=== PATIENT | female | born 1960 | race Caucasian/White ===

== ENCOUNTER → 2017-03-04 | Emergency (ER) | payer OTHER ==
[~2017-03-04] VITALS: Ht 160 cm; Wt 48.1 kg
[~2017-03-04] MED LIST: KETO10TA2 PO; ORPH100T PO; TUSSI PRES-B L120 M1 PO; ZITHROMAX TRI-500 MG PO
== END | disposition home or self-care (01) ==
LOC: ER 08:09
DX: B34.9 Viral infection, unspecified (principal)

== ENCOUNTER → 2017-03-25 | Outpatient (CLI) | payer OTHER | END | disposition home or self-care (01) | LOC: PPHC 13:19 | DX: J02.9 Acute pharyngitis, unspecified (principal); H92.03 Otalgia, bilateral ==

== ENCOUNTER → 2018-05-09 | Outpatient (CLI) | payer OTHER | END | disposition home or self-care (01) | LOC: RAD 501 09:51 | DX: N20.0 Calculus of kidney (principal); R31.29 Other microscopic hematuria ==

== ENCOUNTER 2018-10-30 14:11 | Emergency (ER) | payer OTHER ==
[~2018-10-30] VITALS: Ht 157.5 cm; Wt 47.6 kg
[2018-10-30] MEDS ORDERED: ORPHENADRI30 MG/1 M1 IJ (16:43)
[2018-10-30] MEDS ORDERED: TORADOL60 MG IM (16:43)
== END 2018-10-30 16:48 | disposition home or self-care (01) ==
LOC: ER 14:11
DX: M62.838 Other muscle spasm (principal); G44.209 Tension-type headache, unspecified, not intractable

== ENCOUNTER 2019-09-07 17:20 | Emergency (ER) | payer OTHER ==
[~2019-09-07] VITALS: Ht 160 cm; Wt 45.8 kg
[~2019-09-07 17:20] MED LIST changes: +ORPHENADRI30 MG/1 M1 IJ; +TORADOL60 MG IM
[2019-09-07] MEDS ORDERED: LEVSIN/SL0.125 MG SL (22:51)
[2019-09-07] MEDS ORDERED: PEPCID AC20 MG PO (22:51)
== END 2019-09-07 23:25 | disposition home or self-care (01) ==
LOC: ER 17:20
DX: R10.11 Right upper quadrant pain (principal); Z20.828 Contact with and (suspected) exposure to other viral communicable diseases

== ENCOUNTER 2020-04-03 07:54 | Outpatient (CLI) | payer OTHER ==
[~2020-04-03 07:54] MED LIST changes: +LEVSIN/SL0.125 MG SL; +PEPCID AC20 MG PO
== END 2020-04-03 08:13 | disposition home or self-care (01) ==
LOC: MRI 07:54
PROVIDERS: ATTEND Internal Medicine Gastroenterology
DX: K86.2 Cyst of pancreas (principal); R93.5 Abnormal findings on diagnostic imaging of other abdominal regions, including retroperitoneum
CPT/HCPCS: 74181

== ENCOUNTER → 2022-01-05 10:46 | Outpatient (CLI) | payer OTHER | END | disposition home or self-care (01) | LOC: LAB 10:46 | PROVIDERS: ATTEND Radiology Diagnostic Radiology | DX: R41.3 Other amnesia (principal) ==

== ENCOUNTER 2022-01-07 07:43 | Outpatient (CLI) | payer OTHER | END 2022-01-07 08:00 | disposition home or self-care (01) | LOC: MRI 07:43 | PROVIDERS: ATTEND Neuromusculoskeletal Medicine & OMM | DX: R41.3 Other amnesia (principal); I67.9 Cerebrovascular disease, unspecified | CPT/HCPCS: 70553 ==

== ENCOUNTER 2022-07-07 15:16 | Outpatient (CLI) | payer OTHER | END 2022-07-07 15:25 | disposition home or self-care (01) | LOC: LAB 15:16 | PROVIDERS: ATTEND Radiology Diagnostic Radiology | DX: R10.9 Unspecified abdominal pain (principal) ==

== ENCOUNTER 2022-07-08 06:57 | Outpatient (CLI) | payer OTHER | END 2022-07-08 07:20 | disposition home or self-care (01) | LOC: TOM 06:57 | PROVIDERS: ATTEND Internal Medicine Gastroenterology | DX: R10.31 Right lower quadrant pain (principal); R10.9 Unspecified abdominal pain; R14.0 Abdominal distension (gaseous) ==

== ENCOUNTER 2022-07-21 07:19 | Outpatient (CLI) | payer OTHER | END 2022-07-21 07:30 | disposition home or self-care (01) | LOC: SONOGRAMA 07:19 | PROVIDERS: ATTEND Internal Medicine Gastroenterology | DX: R10.9 Unspecified abdominal pain (principal); N39.0 Urinary tract infection, site not specified; E78.5 Hyperlipidemia, unspecified ==

== ENCOUNTER 2022-08-08 14:21 | Emergency (ER) | payer OTHER ==
[~2022-08-08] VITALS: Ht 160 cm; Wt 53.1 kg
[2022-08-08] MEDS ORDERED: ZESTRIL2.5 MG (15:25)
== END 2022-08-08 17:43 | disposition home or self-care (01) ==
LOC: ER 14:21
DX: R07.0 Pain in throat (principal)

== ENCOUNTER 2022-08-12 07:19 | Outpatient (CLI) | payer OTHER ==
[~2022-08-12 07:19] MED LIST changes: +ZESTRIL2.5 MG
== END 2022-08-12 07:40 | disposition home or self-care (01) ==
LOC: TOM 07:19
PROVIDERS: ATTEND Specialist
DX: K11.20 Sialoadenitis, unspecified (principal); Q21.3 Tetralogy of Fallot

== ENCOUNTER 2022-08-30 15:27 | Outpatient (CLI) | payer OTHER | END 2022-08-30 15:40 | disposition home or self-care (01) | LOC: RAD 15:27 | DX: M79.671 Pain in right foot (principal) ==

== ENCOUNTER 2023-02-24 13:21 | Outpatient (CLI) | payer OTHER | END 2023-02-24 14:32 | disposition home or self-care (01) | LOC: TOM 13:21 | PROVIDERS: ATTEND Specialist | DX: M54.16 Radiculopathy, lumbar region (principal); M48.061 Spinal stenosis, lumbar region without neurogenic claudication ==

== ENCOUNTER → 2023-03-11 | Outpatient (CLI) | payer OTHER | END | disposition home or self-care (01) | LOC: RAD 11:45 | PROVIDERS: ATTEND Internal Medicine Rheumatology | DX: M45.9 Ankylosing spondylitis of unspecified sites in spine (principal); M45.8 Ankylosing spondylitis sacral and sacrococcygeal region ==

== ENCOUNTER 2023-09-22 05:36 | Emergency (ER) | payer OTHER ==
[~2023-09-22] VITALS: Ht 160 cm; Wt 61.2 kg
[2023-09-22] MEDS ORDERED: ACETAMINOPHEN 500 MG GEL..CAP PO STA (06:54)
[2023-09-22] MEDS ORDERED: ONDANSETRON 4 MG TAB.RAPDIS PO STA (06:54)
[2023-09-22] MEDS ORDERED: ONDANSETRON 4 MG TAB.RAPDIS PO ONE (07:01)
[2023-09-22] MEDS ORDERED: ACETAMINOPHEN 500 MG GEL..CAP PO ONE (07:01)
[2023-09-22 07:54] LABS: HEMATOCRIT 38.2 % (36.0-45.00); HEMOGLOBIN 12.9 g/dL (12.0-15.00); MEAN CELL VOLUME 86.8 fL (80.00-100.00); MEAN CORPUSCULAR HEMOGLOBIN 29.2 pg (27.00-32.0); MEAN CORPUSCULAR HGB CONC 33.6 g/dl (32.0-36.0); PLATELET COUNT 292 K/uL (150-450); RED BLOOD COUNT 4.41 M/uL (4.00-6.00); RED CELL DISTRIBUTION WIDTH 13.6 % (11.5-14.5)
[2023-09-22] MEDS ORDERED: MUCINEX DM ER1 EAC1 PO (08:32)
[2023-09-22] MEDS ORDERED: ACETAMINOPHEN500 M2 PO (08:32)
[2023-09-22] MEDS ORDERED: AZITHROMYCIN500 MG PO (08:32)
[2023-09-22] MEDS ORDERED: ONDANSETRON HCL4 MG PO (08:40)
[2023-09-22] MEDS ORDERED: PEPCID AC20 MG PO (08:40)
== END 2023-09-22 08:54 | disposition home or self-care (01) ==
LOC: ER 05:37 → EDBD 05:37 → ER 05:37
PROVIDERS: General Practice
DX: J06.9 Acute upper respiratory infection, unspecified (principal); R50.9 Fever, unspecified

== ENCOUNTER 2023-09-30 08:58 | Outpatient (CLI) | payer OTHER ==
[~2023-09-30 08:58] MED LIST changes: +ACETAMINOPHEN500 M2 PO; +AZITHROMYCIN500 MG PO; +MUCINEX DM ER1 EAC1 PO; +ONDANSETRON HCL4 MG PO
== END 2023-09-30 09:25 | disposition home or self-care (01) ==
LOC: SONOGRAMA 08:58
PROVIDERS: ATTEND Internal Medicine Gastroenterology
DX: R10.9 Unspecified abdominal pain (principal)

== ENCOUNTER 2024-03-09 08:50 | Outpatient (CLI) | payer OTHER | END 2024-03-09 09:10 | disposition home or self-care (01) | LOC: TOM 08:50 | PROVIDERS: ATTEND Internal Medicine Gastroenterology | DX: R10.9 Unspecified abdominal pain (principal); R14.0 Abdominal distension (gaseous); R10.31 Right lower quadrant pain; N39.0 Urinary tract infection, site not specified; K86.2 Cyst of pancreas; E78.5 Hyperlipidemia, unspecified; K52.9 Noninfective gastroenteritis and colitis, unspecified ==

== ENCOUNTER 2024-04-09 21:55 | Emergency (ER) | payer OTHER ==
[~2024-04-09] VITALS: Ht 160 cm; Wt 52.2 kg
[2024-04-09] MEDS ORDERED: FENOFIBRATE145 MG PO (22:08)
[2024-04-09] MEDS ORDERED: FAMOTIDINE/PF 20 MG in 0.9 % SODIUM CHLORIDE 8 ML IV PUSH STA (22:34)
[2024-04-09] MEDS ORDERED: METOCLOPRAMIDE HCL 10 MG in DEXTROSE 5 % IN WATER 50 ML IV ONE (22:45)
[2024-04-09] MEDS ORDERED: 0.9 % SODIUM CHLORIDE 1,000 ML IV SCH (22:45)
[2024-04-09] MEDS ORDERED: KETOROLAC TROMETHAMINE 30 MG VIAL IV ONE (22:45)
[2024-04-09 23:27] LABS: HEMATOCRIT 38.9 % (36.0-45.00); HEMOGLOBIN 12.7 g/dL (12.0-15.00); MEAN CELL VOLUME 89.4 fL (80.00-100.00); MEAN CORPUSCULAR HEMOGLOBIN 29.1 pg (27.00-32.0); MEAN CORPUSCULAR HGB CONC 32.6 g/dl (32.0-36.0); PLATELET COUNT 339 K/uL (150-450); RED BLOOD COUNT 4.35 M/uL (4.00-6.00); RED CELL DISTRIBUTION WIDTH 12.8 % (11.5-14.5)
[2024-04-10 00:17] LABS: ALBUMIN 3.8 gm/dL (3.4-5.0); BILIRUBIN TOTAL 0.25 mg/dL (0.3-1.2); CALCIUM 9.1 mg/dL (8.5-10.1); CREATININE SERUM 0.84 mg/dL (0.55-1.02); GFR 68.48; GLOBULINA 3.2 G/DL (2.4-3.5); POTASSIUM 3.61 mEq/L (3.5-5.1)
== END 2024-04-10 02:03 | disposition home or self-care (01) ==
LOC: ER 21:58
PROVIDERS: General Practice
DX: K29.70 Gastritis, unspecified, without bleeding (principal); R11.0 Nausea